=== PATIENT | female | born 1940 | race Caucasian/White ===

== ENCOUNTER → 2023-12-30 09:41 | Outpatient (REF) | payer OTHER, SELFPAY | LOC: HWRAD 09:41 | PROVIDERS: ATTENDING PHYSICIAN Obstetrics & Gynecology; FAMILY PHYSICIAN Family Medicine | DX: N95.0 Postmenopausal bleeding (principal) | CPT/HCPCS: 76830; 76856 ==

== ENCOUNTER → 2025-06-05 14:11 | Outpatient (REF) | payer OTHER, SELFPAY | LOC: HWWDC 14:11 | PROVIDERS: ATTENDING PHYSICIAN Obstetrics & Gynecology; FAMILY PHYSICIAN Family Medicine | DX: Z78.0 Asymptomatic menopausal state (principal); Z12.31 Encounter for screening mammogram for malignant neoplasm of breast | CPT/HCPCS: 77063; 77067; 77080 ==

== ENCOUNTER → 2025-06-12 08:31 | Outpatient (REF) | payer OTHER, SELFPAY | LOC: WDC 08:31 | PROVIDERS: ATTENDING PHYSICIAN Obstetrics & Gynecology; FAMILY PHYSICIAN Family Medicine | DX: R92.8 Other abnormal and inconclusive findings on diagnostic imaging of breast (principal) | CPT/HCPCS: 76642 ==

== ENCOUNTER → 2025-06-14 08:15 | Outpatient (REF) | payer OTHER, SELFPAY ==
--- NOTE | 2025-06-14 13:21 | OID.BR.INTR ---
[facility] - Initial
- -
Date of Contact: 06/14/25
Met with patient. Patient given written information on navigator service available at [facility]. Will follow up as needed per protocol.
== END ==
LOC: WDC 08:15
PROVIDERS: ATTENDING PHYSICIAN Obstetrics & Gynecology
DX: N63.11 Unspecified lump in the right breast, upper outer quadrant (principal)
CPT/HCPCS: 19083; 88305; 88341; 88360; A4648

== ENCOUNTER → 2025-07-13 09:40 | Outpatient (REF) | payer OTHER, SELFPAY | LOC: WDC 09:40 | PROVIDERS: ATTENDING PHYSICIAN Surgery | DX: C50.411 Malignant neoplasm of upper-outer quadrant of right female breast (principal) | CPT/HCPCS: 19285; A4648 ==

== ENCOUNTER 2025-07-17 06:10 | Day surgery (SDC) | payer OTHER, SELFPAY ==
[2025-07-03 11:25] LABS: Hematocrit 39.2 % (37.0-47.0); Hemoglobin 12.7 g/dL (12.0-16.0); Mean Corp Hgb Conc. 32.4 g/dL (33.0-37.0); Mean Corpuscular Volume 93.1 fL (81.0-99.0); Platelet Count 225 10^3/uL (130-400); Red Cell Dist. Width 12.9 % (11.5-14.5)
[2025-07-03 11:59] LABS: AST (SGOT) 24 U/L (14-36); Albumin 4.6 g/dl (3.5-5.0); Alkaline Phosphatase 49 U/L (38-126); Blood Urea Nitrogen 12 mg/dl (7-17); Calcium 10.4 mg/dl (8.4-10.2); Carbon Dioxide 29 mmol/L (22-30); Chloride 105 mmol/L (98-107); Glucose 102 mg/dl (70-99); Potassium 4.3 mmol/L (3.5-5.1); Sodium 141 mmol/L (135-145); Total Protein 7.9 g/dl (6.3-8.2); eGFR > 60.00
[2025-07-03 12:00] LABS: ALT (SGPT) 20 U/L (0-35); Prealbumin (Transthyretin) 21.5 mg/dl (17.6-36.0)
[2025-07-03 12:12] LABS: Vitamin D, 25-OH*** 76.5 ng/mL (30-80)
[2025-07-03 14:00] VITALS: BMI 26.6
[2025-07-17 06:30] VITALS: BP 164/76
[2025-07-17 06:45] VITALS: BMI 26.6
[2025-07-17] MEDS: LOVENOX 40 MG SC (06:46)
[2025-07-17] MEDS: TYLENOL 1000 MG PO (06:46)
[2025-07-17] MEDS: NORMOSOL-R/PLASMALYTE-A 1000 IV (06:47)
--- NOTE | 2025-07-17 07:13 | W.SUR.PREOP ---
Pre-Operative Surgical Note
-
I have examined this patient prior to the performance of the scheduled procedure.
The patient's condition is unchanged from the time of the current History and
Physical and the patient is able to undergo the scheduled procedure.
[2025-07-17 08:36] VITALS: BP 112/55
[2025-07-17 08:45] VITALS: BP 127/50
--- NOTE | 2025-07-17 08:59 | OR.RPT ---
Addendum entered and electronically signed by Neyda Judd MD 07/18/25 14:42:
The date of the procedure is 07/17/25.
Original Note:
Operative Report
Operative Report
Date of procedure:
Surgeon: Dutch
Preoperative diagnosis: Right breast carcinoma
Postoperative diagnosis: Right breast carcinoma
Procedure: Right localized lumpectomy
Patient is a 84-year-old female with image detected early stage favorable right breast carcinoma who presents for breast conservation treatment 3 right localized lumpectomy. She met criteria to forego axillary sampling.
On the Wednesday before the procedure the patient presented to the [place] [facility] where Bozena reflector was placed in the appropriate area. On the day of surgery the patient presented to the same-day surgical services unit where she was
prepped. She verified site and procedure. DVT and antibiotic prophylaxis were provided and she was taken to the operating room.
In the supine position intravenous sedation was delivered and the right breast was prepped and draped in the usual sterile fashion. All team members performed an appropriate timeout procedure.
All tissues were anesthetized with 1% lidocaine plain and a curvilinear incision was made overlying the area of highest external gamma count. Dissection was carried down to the appropriate area using the cautery and a wide lumpectomy was performed.
Time out of body was noted and the specimen was oriented for the pathologist. Specimen radiography confirmed the presence of mass, biopsy clip, and reflector within it. Additional margins were harvested for permanent analysis from the posterior,
medial, superior, lateral, inferior, and anterior dimensions and sent under separate cover. Marcaine 0.5% plain was instilled into all tissues. Hemoclips were placed in the resection cavity and wound was closed using simple interrupted 3-0 plain
on deep intermediate and subcutaneous tissue and skin was closed with a running subcuticular 4-0 Monocryl.
Surgical glue and sterile compressive dressing were applied. All sponge needle and instrument counts were correct and the patient was transferred back to the same-day surgical services area for recovery.
([id number])
[2025-07-17 09:00] VITALS: BP 131/51
--- NOTE | 2025-07-17 09:02 | W.IMMPOSTOP ---
Surgical Immed Post Op Note
-
Primary Surgeon: Dutch
Assisting Surgeon: None
Pre-op Diagnosis: Right breast carcinoma
Post-op Diagnosis: Same
Procedure Performed: Right localized lumpectomy
Anesthesia Type: TIVA
Specimen / Cultures: Right lumpectomy and margins
Estimated Blood Loss: 2cc
Complications:None
Operative Findings: Mass, clip, and reflector in specimen
[2025-07-17 09:15] VITALS: BP 136/60
[2025-07-17 09:23] VITALS: BP 103/91
== END 2025-07-17 09:40 | disposition home or self-care (01) ==
LOC: SDS 06:10
PROVIDERS: ATTENDING PHYSICIAN Surgery; FAMILY PHYSICIAN Family Medicine
DX: C50.911 Malignant neoplasm of unspecified site of right female breast (principal)
CPT/HCPCS: 19301; 36415; 76098; 80053; 82306; 84134; 85027; 88305; 88307; 93005